=== PATIENT | male | born 1940 | race Caucasian/White ===

== ENCOUNTER 2025-04-16 10:19 | Emergency (ER) | payer OTHER, MEDICARE | END 2025-04-16 13:16 | disposition home or self-care (01) | LOC: ED 10:19 | DX: L03.031 Cellulitis of right toe (principal); E11.9 Type 2 diabetes mellitus without complications; Z88.5 Allergy status to narcotic agent; Z79.84 Long term (current) use of oral hypoglycemic drugs; Z79.899 Other long term (current) drug therapy ==